=== PATIENT | female | born 1965 | race Caucasian/White ===

== ENCOUNTER → 2023-10-22 09:18 | Outpatient (REF) | payer OTHER, SELFPAY | LOC: WOUND 09:18 | PROVIDERS: ATTENDING PHYSICIAN Surgery Plastic and Reconstructive Surgery; REFERRING PHYSICIAN Family Medicine | DX: L97.521 Non-pressure chronic ulcer of other part of left foot limited to breakdown of skin (principal) | CPT/HCPCS: 99203 ==

== ENCOUNTER 2023-12-11 16:37 | Outpatient (RCR) | payer OTHER, SELFPAY | END 2023-12-11 23:59 | disposition home or self-care (01) | LOC: RPT 16:37 | PROVIDERS: ATTENDING PHYSICIAN Orthopaedic Surgery; FAMILY PHYSICIAN Family Medicine | DX: Z47.89 Encounter for other orthopedic aftercare (principal); M79.672 Pain in left foot; R26.9 Unspecified abnormalities of gait and mobility | CPT/HCPCS: 97010; 97110; 97112; 97140 ==

== ENCOUNTER → 2023-12-27 10:15 | Outpatient (REF) | payer OTHER, SELFPAY | LOC: WOUND 10:15 | PROVIDERS: ATTENDING PHYSICIAN Surgery; FAMILY PHYSICIAN Family Medicine | DX: L97.521 Non-pressure chronic ulcer of other part of left foot limited to breakdown of skin (principal); T81.31XS Disruption of external operation (surgical) wound, not elsewhere classified, sequela; I73.9 Peripheral vascular disease, unspecified; X58.XXXS Exposure to other specified factors, sequela | CPT/HCPCS: 99212 ==

== ENCOUNTER 2024-01-09 09:34 | Outpatient (RCR) | payer OTHER, SELFPAY | END 2024-01-09 23:59 | disposition home or self-care (01) | LOC: RPT 09:34 | PROVIDERS: ATTENDING PHYSICIAN Orthopaedic Surgery; FAMILY PHYSICIAN Family Medicine | DX: M79.672 Pain in left foot (principal); R26.9 Unspecified abnormalities of gait and mobility; Z73.6 Limitation of activities due to disability; Z98.890 Other specified postprocedural states | CPT/HCPCS: 97010; 97110; 97112; 97140 ==

== ENCOUNTER 2024-01-16 09:00 | Outpatient (RCR) | payer OTHER, SELFPAY | END 2024-01-16 11:49 | disposition home or self-care (01) | LOC: RPT 09:00 | PROVIDERS: ATTENDING PHYSICIAN Orthopaedic Surgery; FAMILY PHYSICIAN Family Medicine | DX: M79.672 Pain in left foot (principal); R26.9 Unspecified abnormalities of gait and mobility; Z98.890 Other specified postprocedural states; Z73.6 Limitation of activities due to disability | CPT/HCPCS: 97010; 97110; 97112; 97140 ==

== ENCOUNTER → 2024-10-16 10:52 | Outpatient (REF) | payer OTHER, SELFPAY | LOC: RAD 10:52 | PROVIDERS: ATTENDING PHYSICIAN Family Medicine | DX: M41.25 Other idiopathic scoliosis, thoracolumbar region (principal) | CPT/HCPCS: 72081 ==

== ENCOUNTER 2025-01-06 12:34 | Outpatient (RCR) | payer OTHER, SELFPAY | END 2025-01-06 23:59 | disposition home or self-care (01) | LOC: RPT 12:34 | PROVIDERS: ATTENDING PHYSICIAN Family Medicine | DX: M41.25 Other idiopathic scoliosis, thoracolumbar region (principal); Z73.6 Limitation of activities due to disability; R26.89 Other abnormalities of gait and mobility | CPT/HCPCS: 97110; 97162 ==

== ENCOUNTER 2025-02-08 15:00 | Outpatient (RCR) | payer OTHER, SELFPAY | END 2025-02-08 23:59 | disposition home or self-care (01) | LOC: RPT 15:00 | PROVIDERS: ATTENDING PHYSICIAN Family Medicine | DX: M41.25 Other idiopathic scoliosis, thoracolumbar region (principal); R26.89 Other abnormalities of gait and mobility; Z73.6 Limitation of activities due to disability | CPT/HCPCS: 97010; 97110; 97112; 97140 ==

== ENCOUNTER 2025-03-08 10:56 | Outpatient (RCR) | payer OTHER, SELFPAY | END 2025-03-08 23:59 | disposition home or self-care (01) | LOC: RPT 10:56 | PROVIDERS: ATTENDING PHYSICIAN Family Medicine | DX: M41.25 Other idiopathic scoliosis, thoracolumbar region (principal); R26.89 Other abnormalities of gait and mobility; Z73.6 Limitation of activities due to disability | CPT/HCPCS: 97110; 97112; 97140 ==

== ENCOUNTER 2025-03-24 14:02 | Outpatient (RCR) | payer OTHER, SELFPAY | END 2025-03-24 23:59 | disposition home or self-care (01) | LOC: RPT 14:02 | PROVIDERS: ATTENDING PHYSICIAN Family Medicine | DX: M41.25 Other idiopathic scoliosis, thoracolumbar region (principal); R26.89 Other abnormalities of gait and mobility; Z73.6 Limitation of activities due to disability | CPT/HCPCS: 97010; 97110; 97140 ==

== ENCOUNTER → 2025-11-03 12:51 | Outpatient (REF) | payer OTHER, SELFPAY | LOC: RAD 12:51 | PROVIDERS: ATTENDING PHYSICIAN Family Medicine | DX: R35.0 Frequency of micturition (principal); R10.30 Lower abdominal pain, unspecified; R31.29 Other microscopic hematuria | CPT/HCPCS: 74177; Q9967 ==

== ENCOUNTER 2025-11-03 13:49 | Emergency (ER) | payer OTHER, SELFPAY ==
[2025-11-03 13:56] VITALS: BP 106/75
[2025-11-03 14:00] VITALS: BP 114/68
--- NOTE | 2025-11-03 14:08 | ED.GENMED ---
History of Present Illness
General
Chief Complaint: Allergic Reaction
Source: patient
Exam Limitations: none
Time Seen by Provider: 11/03/25 14:03
History of Present Illness
History of Present Illness:
59-year-old female with an allergic reaction to IV dye. She received an outpatient CT for ongoing lower abdominal pain ataxia improved. This was ordered by her primary physician. Immediately after the IV dye she had some welt to her face and some
itching of her neck. No trouble swallowing or breathing. No shortness of breath. Symptoms are remained stable. No preceding medication for this. No history of same
Past History
Past History
ED Past Medical History: None
ED Past Surgical History: Appendectomy
Phy Exam
Physical Exam
Physical Exam:
GENERAL: Alert and oriented in no apparent distress
EYE: Orbits normal.
NECK: Supple, no unusual neck swelling.
ENT: Pharynx without erythema. No drooling no stridor. Speech normal.
CARDIAC: Regular rate and rhythm without any obvious murmurs.
LUNGS: Clear breath sounds,normal
ABDOMEN: Soft, without focal tenderness or distention
NEUROLOGICAL: Alert and oriented , grossly non-focal
SKIN: Warm and dry, small single hive laterally to the right lower lip. Slight erythema to the neck
MUSCULOSKELETAL: No edema,no deformity.Good color
PSYCH: Normal and appropriate interaction.
Course
Orders/Labs/Results
Orders:
Orders
11/03/25 14:08
IV Insert/Care/Rem.- Treatment PRN
0.9% Sodium Chloride 500 ml [Nss] 500 ml IV BOLUS
Dexamethasone Sod Phosphate [Decadron] 8 mg IV NOW STA
Diphenhydramine [Benadryl] 25 mg IV NOW STA
Famotidine [Pepcid] 20 mg IV NOW STA
Vital Signs
Initial and Last Documented VS:
Initial Vital Signs
BP
106/75
11/03/25 13:56
Last Documented Vital Signs
Pulse Resp BP Pulse Ox
64 16 111/67 95
11/03/25 15:15 11/03/25 15:15 11/03/25 15:00 11/03/25 15:35
MDM/Problems Addressed
Differential Diagnosis Includes:
Allergic reaction IV dye. Mild. Clinically stable. No indication for epinephrine. Will give a smaller dose of Benadryl, Pepcid and steroids. Observation.
*Pulse Oximetry
Patient hypoxic: no
*Graphics Coordinator Interpretation
Rate: normal
Interpretation: normal
Heart Rate: 61
Rhythm: sinus
*Critical Care Note
Total Time (30-74mins, 75-104mins- exclusive of procedures): Not Applicable
Update Note
Update Note:
Patient has remained stable. Hive and welt resolved. Erythema resolved. Discharged to follow-up
ED Attending Note
-
Portions of this chart may have been created with voice recognition software.� Occasional wrong word or��sound alike� substitutions may have occurred due to the inherent limitations of voice recognition software.
Discharge Plan
Departure
Patient Disposition: Home (Routine Discharge)
Date of Disposition: 11/03/25
Time of Disposition: 15:49
Patient with high blood pressure during this ER visit?: No
Discharge Problem:
Acute allergic reaction, Secondary to IV dye
Instructions: Allergic reaction - ED (DC), BLOOD PRESSURE
Prescriptions:
New
prednisone 50 mg tablet
50 mg PO DAILY Qty: 5 0RF
Referrals:
Enmanuel Bejarano MD [Family Provider, Family Practice] - Follow up in 2-3 days
Activity Restrictions/Additional Instructions:
Take Benadryl or Nayeli or Claritin for the next few days
Only start the prednisone tomorrow with persistent symptoms
Make sure if you ever get a CAT scan with dye you let them know you did have an allergic reaction
Interventions
Interventions:
*General Assessment Last Done: 11/03/25 16:05
*Neglect/Abuse Screening Last Done: 11/03/25 13:50
*ED COVID-19 Vaccine History Last Done: 11/03/25 13:50
*ED Influenza Vaccine History Last Done: 11/03/25 13:50
[facility] Fall Risk Assessment Tool Last Done: 11/03/25 13:49
*Risk Screen - Suicide (C-SSRS) Last Done: 11/03/25 13:50
*Nursing Disposition Last Done: 11/03/25 16:03
ED- Cardiac Assessment Last Done: 11/03/25 14:35
ED- Pulmonary Assessment Last Done: 11/03/25 14:35
ED-Skin Assessment Last Done: 11/03/25 14:35
Discharge Date and Time
Discharge Date/Time: 11/03/25 16:05
Print Language: SINHALA
[2025-11-03] MEDS: DECADRON 8 MG IV (14:13)
[2025-11-03] MEDS: PEPCID 20 MG IV (14:13)
[2025-11-03] MEDS: BENADRYL 25 MG IV (14:14)
[2025-11-03] MEDS: NSS 500 IV (14:15)
[2025-11-03 15:00] VITALS: BP 111/67
== END 2025-11-03 16:05 | disposition home or self-care (01) ==
LOC: EMR 13:49
PROVIDERS: EMERGENCY PHYSICIAN Emergency Medicine; FAMILY PHYSICIAN Family Medicine
DX: L29.9 Pruritus, unspecified (principal); T50.8X5A Adverse effect of diagnostic agents, initial encounter; Y92.9 Unspecified place or not applicable; Z90.49 Acquired absence of other specified parts of digestive tract
CPT/HCPCS: 99282; 96374; 96375; 96361